=== PATIENT | female | born 1980 | race Hispanic/Latino ===

== ENCOUNTER 2019-12-23 11:34 | Inpatient (IN) | payer MEDICAID ==
[~2019-12-23] VITALS: Ht 157.5 cm; Wt 98.9 kg
[2019-12-23] MEDS ORDERED: LACTATED RINGERS 1000ML 1,000 ML IV PRN (12:08)
[2019-12-23] MEDS ORDERED: OXYTOCIN 10 USP UNITS/ML 20 UNIT in LACTATED RINGERS 1000ML 1,000 ML IV SCH (12:15)
[2019-12-23 12:37] LABS: HEMATOCRIT 38.1 % (36-48); MEAN CORPUSCULAR HEMOGLOBIN 28.6 pg (27.0-33.0); MEAN CORPUSCULAR HGB CONC 32.5 g/dL (32.0-36.0); MEAN CORPUSCULAR VOLUME 87.8 fL (79-99); PLATELET COUNT (AUTO) 215 K/uL (130-400); RED BLOOD CELL COUNT(AUTO) 4.34 MIL/uL (4.00-5.50); RED CELL DISTRIBUTION WIDTH 13.3 % (11.0-15.5); WHITE BLOOD COUNT (AUTO) 9.1 K/uL (4.8-10.8)
[2019-12-23 12:40] LABS: APPEARANCE,URINE Cloudy (CLEAR); BILIRUBIN,URINE Negative (NEGATIVE); COLOR,URINE Yellow (YELLOW); GLUCOSE, URINE (UA) Negative (NEGATIVE); KETONES,URINE Negative (NEGATIVE); LEUKOCYTE ESTERASE ,URINE Trace (NEGATIVE); NITRATE,URINE Negative (NEGATIVE); OCCULT BLOOD,URINE Negative (NEGATIVE); PROTEIN,URINE POS 1+ mg/dL (NEGATIVE); UROBILINOGEN,URINE 0.2 mg/dL (0.2-1.0)
[2019-12-23 13:06] LABS: BACTERIA,URINE Rare /HPF (None Seen); RBC,URINE 0-1 /HPF (0-1); SQUAMOUS EPITHELIAL CELL,UR Few /HPF (0-2)
[2019-12-23] MEDS ORDERED: OXYTOCIN-LR 20 UNITS/1000 ML 1,000 ML IV ONE (13:27)
[2019-12-23] MEDS ORDERED: MEPERIDINE-PF 50 MG/ML SYG IVP PRN (16:15)
[2019-12-23] MEDS ORDERED: PROMETHAZINE HCL 25 MG/ML 1ML AMPULE IM PRN (16:15)
[2019-12-23] MEDS ORDERED: LIDOCAINE HCL 1% 20 ML VIAL INJ PRN (16:30)
[2019-12-23] MEDS: OXYTOCIN-LR 20 UNITS/1000 ML 1,000 ML IV SCH ×2 (18:19→23:49)
[2019-12-23] MEDS ORDERED: MEASLES/MUMPS/RUBELLA VACCINE, LIVE 0.5 ML/VIAL SQ PRN (18:45)
[2019-12-23] MEDS ORDERED: BENZOCAINE/LANOLIN/ALOE VERA 60 ML AEROSOL TP PRN (18:45)
[2019-12-23] MEDS ORDERED: LANOLIN 30GM OINTMENT TP PRN (18:45)
[2019-12-23] MEDS ORDERED: ACETAMINOPHEN 325 MG TAB PO PRN (18:45)
[2019-12-23] MEDS ORDERED: WITCH HAZEL 1 PAD TP PRN (18:45)
[2019-12-23] MEDS ORDERED: DIPH,PERTUSS(ACELL),TET VAC/PF 0.5 ML VIAL IM PRN (18:45)
[2019-12-23] MEDS ORDERED: ACETAMINOPHEN-CODEINE 300/30MG TAB PO PRN (18:45)
[2019-12-23 20:23] VITALS: BP 123/75
[2019-12-23] MEDS: DOCUSATE SODIUM 100 MG CAP PO SCH (21:05)
[2019-12-23] MEDS: IBUPROFEN 600 MG TABLET PO PRN (22:32)
[2019-12-23 23:46] VITALS: BP 111/53
[2019-12-24] MEDS ORDERED: METF-446 PO (01:56)
[2019-12-24] MEDS ORDERED: INSU500V SQ (01:56)
[2019-12-24] MEDS ORDERED: INSU100V3 IJ (01:56)
[2019-12-24] MEDS ORDERED: NPH,100V11 SQ ×2 (01:56)
[2019-12-24] MEDS ORDERED: PREN-94 PO (01:57)
[2019-12-24 03:46] VITALS: BP 115/69
[2019-12-24 05:30] LABS: HEMATOCRIT 34.6 % (36-48); MEAN CORPUSCULAR HEMOGLOBIN 28.3 pg (27.0-33.0); MEAN CORPUSCULAR HGB CONC 32.1 g/dL (32.0-36.0); MEAN CORPUSCULAR VOLUME 88.3 fL (79-99); PLATELET COUNT (AUTO) 190 K/uL (130-400); RED BLOOD CELL COUNT(AUTO) 3.92 MIL/uL (4.00-5.50); RED CELL DISTRIBUTION WIDTH 13.5 % (11.0-15.5); WHITE BLOOD COUNT (AUTO) 13.1 K/uL (4.8-10.8)
[2019-12-24 07:13] LABS: HEPATITIS Bs ANTIGEN SCREEN P Negative (Negative)
[2019-12-24 07:44] VITALS: BP 114/58
[2019-12-24] MEDS: DOCUSATE SODIUM 100 MG CAP PO SCH (09:06)
[2019-12-24] MEDS: IBUPROFEN 600 MG TABLET PO PRN ×2 (09:06→16:01)
[2019-12-24 11:51] VITALS: BP 115/70
[2019-12-24 16:38] VITALS: BP 115/77
--- NOTE | 2019-12-24 18:25 | NUR ---
DISCHARGE PT LEFT UNIT VIA WHEELCHAIR, WITH BABY IN ARMS, ACCOMPANIED BY SIGNIFICANT OTHER. DENIED PAIN AND HAD NO COMPLAINTS. BABY STRAPPED IN CAR SEAT. PT AND BABY TRANSPORTED BY PERSONAL VEHICLE.
== END 2019-12-24 18:25 | disposition home or self-care (01) | DRG 560 ==
LOC: OBSVTOIN 11:34 → LDH 11:34 → WSH 20:12
PROVIDERS: ADMIT Obstetrics & Gynecology; ATTEND Obstetrics & Gynecology
PROC: 10E0XZZ Delivery of Products of Conception, External Approach (ICD-10-PCS; principal; 2019-12-23)
PROC: 10907ZC Drainage of Amniotic Fluid, Therapeutic from Products of Conception, Via Natural or Artificial Opening (ICD-10-PCS; 2019-12-23)
PROC: 3E0234Z Introduction of Serum, Toxoid and Vaccine into Muscle, Percutaneous Approach (ICD-10-PCS; 2019-12-23)
DX: O24.424 Gestational diabetes mellitus in childbirth, insulin controlled (principal); Z37.0 Single live birth; O10.92 Unspecified pre-existing hypertension complicating childbirth; Z3A.00 Weeks of gestation of pregnancy not specified; Z3A.37 37 weeks gestation of pregnancy; Z23 Encounter for immunization
CPT/HCPCS: 36415; 81001; 82948; 85027; 86592; 86850; 86900; 86901; 87340; 90715; A4351; G0378; J2175; J2550; J2590

== ENCOUNTER 2020-02-16 09:28 | Day surgery (SDC) | payer MEDICAID ==
[2020-02-16] VITALS (18 sets, daily range): BP systolic 112–143; BP diastolic 65–89
[~2020-02-16] VITALS: Ht 157.5 cm; Wt 87.3 kg
[2020-02-16] MEDS: CEFAZOLIN SODIUM 1 GM VIAL IVP SCH ×2 (06:00→12:15)
[~2020-02-16 09:28] MED LIST: METF-446 PO
[2020-02-16] MEDS ORDERED: CALDOLOR 800MG+NS 250ML 250 ML IV ONE (10:09)
[2020-02-16] MEDS ORDERED: SODIUM CHLORIDE 0.9% 1000ML 1,000 ML IV ONE (10:25)
[2020-02-16 10:37] LABS: MEAN CORPUSCULAR HEMOGLOBIN 29.4 pg (27.0-33.0); MEAN CORPUSCULAR HGB CONC 33.6 g/dL (32.0-36.0); MEAN CORPUSCULAR VOLUME 87.4 fL (79-99); RED BLOOD CELL COUNT(AUTO) 4.46 MIL/uL (4.00-5.50); RED CELL DISTRIBUTION WIDTH 12.9 % (11.0-15.5); WHITE BLOOD COUNT (AUTO) 6.3 K/uL (4.8-10.8)
[2020-02-16] MEDS: LACTATED RINGERS 1000ML 1,000 ML IV SCH ×2 (10:46→13:19)
[2020-02-16] MEDS ORDERED: LIDOCAINE PF 2% 5ML ABBOJECT ONE (11:52)
[2020-02-16] MEDS ORDERED: MIDAZOLAM HCL 1 MG/ML 2ML VIAL ONE (11:53)
[2020-02-16] MEDS ORDERED: PROPOFOL 10 MG/ML 20ML VIAL IV ONE (11:53)
[2020-02-16] MEDS ORDERED: ROCURONIUM 10MG/1ML SYR 10 MG/ML ML ONE (11:53)
[2020-02-16] MEDS ORDERED: ONDANSETRON HCL 4 MG/2 ML VIAL ONE (11:53)
[2020-02-16] MEDS ORDERED: FENTANYL CITRATE PF 50 MCG/1 ML 2ML VIAL ONE ×2 (11:54→12:41)
[2020-02-16] MEDS ORDERED: BUPIVACAINE/PF 0.5% 30ML VIAL ONE (12:38)
[2020-02-16] MEDS ORDERED: NEOSTIGMINE 5MG/5ML SYR IV ONE (13:01)
[2020-02-16] MEDS ORDERED: GLYCOPYRROLATE 1 MG/5 ML SYRINGE ONE (13:02)
[2020-02-17] MEDS ORDERED: CALDOLOR 800MG+NS 250ML 250 ML IV SCH (06:00)
== END 2020-02-16 14:55 | disposition home or self-care (01) ==
LOC: DAH 09:28
PROVIDERS: ATTEND Obstetrics & Gynecology
DX: Z30.2 Encounter for sterilization (principal); E11.9 Type 2 diabetes mellitus without complications; I10 Essential (primary) hypertension; E66.9 Obesity, unspecified
CPT/HCPCS: 36415; 58661; 82948 ×2; 84703; 85027; 86850; 86900; 86901; A4213; A4215; A4221; A4222; A4223; A4351; A4663; C1769 ×2; G0168; J0690; J1741; J2001; J2250; J2405; J2704; J2710; J3010 ×2; J3490 ×2; J7030 ×2; J7120